=== PATIENT | male | born 1985 | race Caucasian/White ===

== ENCOUNTER 2022-11-02 12:19 | Day surgery (SDC) | payer OTHER ==
[2022-11-02] MEDS ORDERED: Lidocaine 1% with EPINEPHrine 1:100,000 20 ML MDV ONE ×3 (12:30→12:41)
[2022-11-02] MEDS ORDERED: Bupivacaine 0.5%/EPINEPHrine 1:200,000 50 ML MDV ONE (12:30)
[2022-11-02] MEDS ORDERED: Propofol 200 MG/20 ML SDV ONE (12:32)
[2022-11-02] MEDS ORDERED: fentaNYL 250 MCG/5 ML SDV ONE (12:32)
[2022-11-02] MEDS ORDERED: Succinylcholine 200 MG/10 ML MDV ONE (12:32)
[2022-11-02] MEDS ORDERED: Midazolam 1 MG/ML 2 ML SDV ONE (12:32)
[2022-11-02] MEDS ORDERED: Neostigmine Methylsulfate 10 MG/10 ML MDV ONE (12:33)
[2022-11-02] MEDS ORDERED: Rocuronium 50 MG/5 ML Vial ONE (12:33)
[2022-11-02] MEDS ORDERED: Lidocaine 1% 8 ML ONE (12:33)
[2022-11-02] MEDS ORDERED: Lactated Ringers 1,000 ML IV SCH (13:00)
[2022-11-02] MEDS ORDERED: HYDROmorphone 0.5 MG/0.5 ML Syringe IVPUSH PRN (15:28)
[2022-11-02] MEDS ORDERED: fentaNYL 100 MCG/2 ML SDV IVPUSH PRN (15:28)
[2022-11-02] MEDS ORDERED: cefOXitin 2 GM in Premix Bag 1 BAG IV ONE (15:30)
[2022-11-02] MEDS ORDERED: Dexamethasone 4 MG/ML 5 ML MDV ONE (15:57)
[2022-11-02] MEDS ORDERED: Ondansetron 4 MG/2 ML SDV ONE (15:57)
[2022-11-02] MEDS ORDERED: Ketorolac 30 MG/ML SDV ONE (16:01)
[2022-11-02] MEDS ORDERED: Metoclopramide 10 MG/2 ML SDV ONE (16:06)
[2022-11-02] MEDS ORDERED: Acetaminophen/oxyCODONE 325-5 MG Tab PO PRN (16:45)
== END 2022-11-02 18:00 | disposition home or self-care (01) ==
LOC: JD.SDS 12:19
PROVIDERS: ATTEND Surgery
DX: K35.30 Acute appendicitis with localized peritonitis, without perforation or gangrene (principal)
CPT/HCPCS: 44970; A9270; J0330; J1100; J1885; J2250; J2405; J2704; J2710; J2765; J3010; J3490; J7120; 00840; J0694